=== PATIENT | female | born 1960 | race Caucasian/White ===

== ENCOUNTER 2016-07-10 19:57 | Emergency (ER) | payer BC ==
[2016-07-10] MEDS ORDERED: Aspirin Low Dose CHEW TAB* 81 MG PO ONE (20:34)
[2016-07-10 21:28] LABS: Hematocrit 43 % (35-47); Hemoglobin 14.5 g/dl (12.0-16.0); Mean Corpuscular HGB Conc 34 g/dl (31-36); Mean Corpuscular Hemoglobin 32 pg (27-31); Mean Corpuscular Volume 94 fL (80-97); Mean Platelet Volume 8 um3 (7.4-10.4); Red Blood Count 4.54 10^6/ul (4.0-5.4); Red Cell Distribution Width 14 % (10.5-15); White Blood Count 5.5 10^3/ul (3.5-10.8)
--- NOTE | 2016-07-10 21:30 | RAD ---
Indication: Chest pain. Comparison is made with previous exam dated October 31, 2007 2 views of the chest including dual energy PA views demonstrates no mediastinal shift. Peribronchial thickening consistent with vascular congestion is noted. No alveolar consolidation is noted. IMPRESSION: Mild vascular congestion without evidence of pneumonia.
[2016-07-10 22:14] LABS: Albumin 4.1 g/dL (3.2-5.2); BUN/Creatinine Ratio 13.6 (8-20); Calcium 9.2 mg/dL (8.6-10.3); EGFR African American 70.8 (>60); Globulin 2.6 g/dL (2-4); Potassium 3.9 mmol/L (3.5-5.0); Total Bilirubin 0.4 mg/dL (0.2-1.0); Total Protein 6.7 g/dL (6.4-8.9)
[2016-07-10 22:16] LABS: Troponin I 0.01 ng/mL (<0.04)
[2016-07-10] MEDS ORDERED: Iodixanol* (CONTRAST) 320 MG/ML 100 ML SDV IV ONE (22:26)
--- NOTE | 2016-07-10 23:05 | RAD ---
Indication: Elevated d-dimer, evaluate for pulmonary embolus. CTA of the chest was performed after IV contrast administration. Coronal and sagittal reconstructed images were obtained. Administered 87.1 ml of VISAPAQUE 320 mgi/ml was given according to hospital protocol. Coronal and sagittal reconstructed images were obtained. The pulmonary arterial tree is well opacified. There are no filling defects present to suggest pulmonary embolus. The ascending and descending aorta demonstrates no evidence of aneurysmal dilatation or aortic dissection. Heart demonstrates no pericardial effusion. No mediastinal or hilar adenopathy is noted. Inferior thyroid lobes are unremarkable. The lung lowery demonstrates dependent changes. Prominent interstitial markings which may represent vascular congestion is present. Patchy areas of dependent edema is noted. The visualized abdominal organs are grossly unremarkable. IMPRESSION: No evidence of pulmonary emboli is noted. Dependent changes in the lung lowery with prominent interstitial markings and prominent vasculature and the possibility of vascular congestion should BE considered.
[2016-07-10 23:10] VITALS: BP 115/77
--- NOTE | 2016-07-27 19:55 | ED ---
Kulwant Belcher Janilya, scribed for Cade Moon MD on 07/10/16 at 2039 . HPI Chest Pain - HPI Summary HPI Summary: A 56 y/o female came in to [facility] presenting w/ a gradual onset of intermittent CP for a few weeks. At first, pt thought it was a heart burn. So she took antacids and used inhalers with no relief. However, the pain worsened last night. The pain radiates to neck and ears. There is nothing that makes the pain better or worse. Pt states there is a lot of pressure in head. Pt denies fever, nausea, and vomiting. Pt states she has baseline diarrhea. Appetite has not changed. PMHx GERD couple years ago. - History of Current Complaint Chief Complaint: EDChestPainROMI Hx Obtained From: Patient Onset/Duration: Started Days Ago, Atraumatic, Still Present Timing: Constant Initial Severity: Moderate Current Severity: Moderate Pain Intensity: 7 Pain Scale Used: 0-10 Numeric Chest Pain Location: Mid Sternal Chest Pain Radiates: Yes Chest Pain Radiates To:: Neck, Other - ears and head Aggravating Factor(s): Nothing Alleviating Factor(s): Nothing Associated Signs and Symptoms: Positive: Chest Pain, Headaches, Other: - diarrhea. Negative: Fever, Nausea, Vomiting PMH/Surg Hx/FS Hx/Imm Hx Previously Healthy: Yes Endocrine/Hematology History: Denies: Hx Diabetes, Hx Systemic Lupus Erythematosus Cardiovascular History: Denies: Hx Congestive Heart Failure, Hx Hypertension, Hx Pacemaker/ICD Respiratory History: Reports: Hx Pulmonary Embolism GI History: Reports: Other GI Disorders - diarrhea History: Denies: Hx Dialysis, Hx Renal Disease Musculoskeletal History: Reports: Other Musculoskeletal History - MRI 2009 FINDINGS OF POSSIBLE ATHRITIS Denies: Hx Rheumatoid Arthritis Sensory History: Denies: Hx Hearing Aid Psychiatric History: Denies: Hx Panic Disorder - Cancer History Cancer Type, Location and Year: Cervical CA in 2007 Hx Chemotherapy: Yes - 2007 - Surgical History Surgery Procedure, Year, and Place: tonsillectomy in the s; tubaligation 1987 ; lymphemdectomy pelvis and abdomen in 2007 due to cervical cancer dx in 2007. Parathyroidectomy in 2010. Infectious Disease History: No Infectious Disease History: Denies: Traveled Outside the [place] in Last 30 Days - Family History Known Family History: Positive: Cardiac Disease, Hypertension, Diabetes - Social History Lives: With Family Review of Systems Negative: Fever Positive: Ear Ache Positive: Chest Pain Positive: Diarrhea. Negative: Nausea Positive: Headache All Other Systems Reviewed And Are Negative: Yes Physical Exam Triage Information Reviewed: Yes Vital Signs On Initial Exam: Initial Vitals Temp Pulse Resp BP Pulse Ox 98.1 F 78 24 146/92 95 07/10/16 20:19 07/10/16 20:19 07/10/16 20:19 07/10/16 20:19 07/10/16 20:19 Vital Signs Reviewed: Yes Appearance: Positive: Well-Appearing, No Pain Distress Skin: Positive: Warm Head/Face: Positive: Normal Head/Face Inspection Eyes: Positive: JINA ENT: Positive: Pharynx normal Neck: Positive: Supple Respiratory/Lung Sounds: Positive: Clear to Auscultation, Breath Sounds Present Cardiovascular: Positive: Normal Abdomen Description: Positive: Nontender, Soft Bowel Sounds: Positive: Present Musculoskeletal: Positive: Strength/ROM Intact Neurological: Positive: Sensory/Motor Intact Psychiatric: Positive: Affect/Mood Appropriate Diagnostics - Vital Signs Vital Signs Temp Pulse Resp BP Pulse Ox 07/10/16 20:19 98.1 F 78 24 146/92 95 - Laboratory Lab Results: Lab Results 07/10/16 07/10/16 07/10/16 Range/Units 21:10 21:10 21:10 WBC 5.5 (3.5-10.8) 10^3/ul RBC 4.54 (4.0-5.4) 10^6/ul Hgb 14.5 (12.0-16.0) g/dl Hct 43 (35-47) % MCV 94 (80-97) fL MCH 32 H (27-31) pg MCHC 34 (31-36) g/dl RDW 14 (10.5-15) % Plt Count 187 (150-450) 10^3/ul MPV 8 (7.4-10.4) um3 Neut % (Auto) 74.5 (38-83) % Lymph % (Auto) 12.2 L (25-47) % [place] % (Auto) 11.7 H (1-9) % Eos % (Auto) 0.9 (0-6) % Baso % (Auto) 0.7 (0-2) % Absolute Neuts (auto) 4.1 (1.5-7.7) 10^3/ul Absolute Lymphs (auto) 0.7 L (1.0-4.8) 10^3/ul Absolute Monos (auto) 0.6 (0-0.8) 10^3/ul Absolute Eos (auto) 0 (0-0.6) 10^3/ul Absolute Basos (auto) 0 (0-0.2) 10^3/ul Absolute Nucleated RBC 0 10^3/ul Nucleated RBC % 0 INR (Anticoag Therapy) (0.89-1.11) D-Dimer, Quantitative (Less Than 230) ng/mL Sodium 137 (133-145) mmol/L Potassium 3.9 (3.5-5.0) mmol/L Chloride 102 (101-111) mmol/L Carbon Dioxide 30 (22-32) mmol/L Anion Gap 5 (2-11) mmol/L BUN 14 (6-24) mg/dL Creatinine 1.03 H (0.51-0.95) mg/dL Est GFR ( Amer) 70.8 (>60) Est GFR (Non-Af Amer) 55.0 (>60) BUN/Creatinine Ratio 13.6 (8-20) Glucose 100 (70-100) mg/dL Lactic Acid 0.9 (0.5-2.0) mmol/L Calcium 9.2 (8.6-10.3) mg/dL Magnesium 2.0 (1.9-2.7) mg/dL Total Bilirubin 0.40 (0.2-1.0) mg/dL AST 28 (13-39) U/L ALT 24 (7-52) U/L Alkaline Phosphatase 72 (34-104) U/L Troponin I 0.01 (<0.04) ng/mL Total Protein 6.7 (6.4-8.9) g/dL Albumin 4.1 (3.2-5.2) g/dL Globulin 2.6 (2-4) g/dL Albumin/Globulin Ratio 1.6 (1-3) 07/10/16 Range/Units 21:10 WBC (3.5-10.8) 10^3/ul RBC (4.0-5.4) 10^6/ul Hgb (12.0-16.0) g/dl Hct (35-47) % MCV (80-97) fL MCH (27-31) pg MCHC (31-36) g/dl RDW (10.5-15) % Plt Count (150-450) 10^3/ul MPV (7.4-10.4) um3 Neut % (Auto) (38-83) % Lymph % (Auto) (25-47) % [place] % (Auto) (1-9) % Eos % (Auto) (0-6) % Baso % (Auto) (0-2) % Absolute Neuts (auto) (1.5-7.7) 10^3/ul Absolute Lymphs (auto) (1.0-4.8) 10^3/ul Absolute Monos (auto) (0-0.8) 10^3/ul Absolute Eos (auto) (0-0.6) 10^3/ul Absolute Basos (auto) (0-0.2) 10^3/ul Absolute Nucleated RBC 10^3/ul Nucleated RBC % INR (Anticoag Therapy) 0.96 (0.89-1.11) D-Dimer, Quantitative 259 H (Less Than 230) ng/mL Sodium (133-145) mmol/L Potassium (3.5-5.0) mmol/L Chloride (101-111) mmol/L Carbon Dioxide (22-32) mmol/L Anion Gap (2-11) mmol/L BUN (6-24) mg/dL Creatinine (0.51-0.95) mg/dL Est GFR ( Amer) (>60) Est GFR (Non-Af Amer) (>60) BUN/Creatinine Ratio (8-20) Glucose (70-100) mg/dL Lactic Acid (0.5-2.0) mmol/L Calcium (8.6-10.3) mg/dL Magnesium (1.9-2.7) mg/dL Total Bilirubin (0.2-1.0) mg/dL AST (13-39) U/L ALT (7-52) U/L Alkaline Phosphatase (34-104) U/L Troponin I (<0.04) ng/mL Total Protein (6.4-8.9) g/dL Albumin (3.2-5.2) g/dL Globulin (2-4) g/dL Albumin/Globulin Ratio (1-3) Result Diagrams: 07/10/16 21:10 07/10/16 21:10 Lab Statement: Any lab studies that have been ordered have been reviewed, and results considered in the medical decision making process. - Radiology CXR Xray Interpretation: Positive (See Comments) - IMPRESSION: Mild vascular congestion without evidence of pneumonia. Radiology Interpretation Completed By: Radiologist - EKG 1999 Cardiac Rate: NL - 85 bpm EKG Rhythm: Sinus Rhythm ST Segment: Normal Ectopy: None Chest Pain Course/Dx - Diagnoses Provider Diagnoses: Abdominal pain Discharge - Discharge Plan Condition: Stable Disposition: HOME Patient Education Materials: Abdominal Pain (ED) Referrals: Nina Kennedy MD [Primary Care Provider] - Additional Instructions: Follow up with your urologist and make diet changes for GERD. The documentation as recorded by the Kulwant ortega Janilya accurately reflects the service I personally performed and the decisions made by me, Cade Moon MD.
== END 2016-07-10 23:35 | disposition home or self-care (01) ==
LOC: ED 19:57
DX: R10.9 Unspecified abdominal pain (principal); R07.9 Chest pain, unspecified; H92.09 Otalgia, unspecified ear; R51 Headache; R19.7 Diarrhea, unspecified
CPT/HCPCS: 36415; 71020; 71275; 80053; 83605; 83735; 84484; 85025; 85379; 85610; 93005; 99283; A9270-GY; Q9967

== ENCOUNTER 2016-10-17 08:33 | Emergency (ER) | payer BC, OTHER ==
[2016-10-17 09:10] VITALS: BP 129/94
[2016-10-17] MEDS ORDERED: Naproxen TAB* 250 MG PO ONE (09:40)
--- NOTE | 2016-10-17 09:46 | UC ---
Knee Pain HPI - HPI Summary HPI Summary: 56 yo female with right knee pain x 10 wks rachelle swollen saw PMD dx with bakers cyst had cortisone shot felt improved twisted knee yesterday getting on a tractor now worse - History of Current Complaint Chief Complaint: UCLowerExtremity Stated Complaint: KNEE PAIN Time Seen by Provider: 10/17/16 09:32 Hx Obtained From: Patient Onset/Duration: Sudden Onset - sudden exacerbation Severity Initially: Mild Severity Currently: Moderate Pain Intensity: 6 Pain Scale Used: 0-10 Numeric Character: Sharp, Aching Aggravating Factor(s): Movement, Weight Bearing Alleviating Factor(s): Rest Associated Signs And Symptoms: Positive: Swelling Able to Bear Weight: Yes - Allergies/Home Medications Allergies/Adverse Reactions: Allergies Allergy/AdvReac Type Severity Reaction Status Date / Time No Known Allergies Allergy Verified 10/17/16 09:01 Home Medications: Home Medications Aleve 2 tab PO ONCE 10/17/16 [History] Pregabalin CAP(*) [Lyrica CAP(*)] 1 cap PO DAILY 10/17/16 [History Confirmed 12/27] PMH/Surg Hx/FS Hx/Imm Hx Previously Healthy: Yes Endocrine History Of: Reports: Thyroid Disease - enlarged with suspicious nodules Denies: Diabetes Cardiovascular History Of: Denies: Cardiac Disorders, Hypertension, Pacemaker/ICD, Congestive Heart Failure Respiratory History Of: Reports: COPD Denies: Asthma GI/ History Of: Denies: Ulcer, Renal Disease - Surgical History Surgical History: Yes Surgery Procedure, Year, and Place: tonsillectomy in the s; tubaligation 1987 ; [facility] ,lymphecdectomy pelvis and abdomen in 2007 due to cervical cancer dx in 2007. Parathyroidectomy in 2010. - Family History Known Family History: Positive: Hypertension - Social History Alcohol Use: Occasionally Substance Use Type: None Smoking Status (MU): Heavy Every Day Tobacco Smoker Review of Systems Constitutional: Negative Skin: Negative Eyes: Negative ENT: Negative Respiratory: Negative Cardiovascular: Negative Gastrointestinal: Negative Genitourinary: Negative Motor: Negative Neurovascular: Negative Musculoskeletal: Arthralgia Neurological: Negative Psychological: Negative All Other Systems Reviewed And Are Negative: Yes Physical Exam Triage Information Reviewed: Yes Appearance: Well-Appearing, No Pain Distress, Well-Nourished Vital Signs: Initial Vital Signs Temp 98.4 F 10/17/16 08:51 Pulse 85 10/17/16 08:51 Resp 18 10/17/16 08:51 BP 129/94 10/17/16 08:51 Pulse Ox 98 10/17/16 08:51 Vital Signs Reviewed: Yes Eye Exam: Normal Eyes: Positive: Conjunctiva Clear ENT: Positive: Hearing grossly normal. Negative: Nasal drainage, Trismus, Muffled/hoarse voice Neck: Positive: Supple, Nontender, No Lymphadenopathy Respiratory: Positive: Lungs clear, Normal breath sounds, No respiratory distress, No accessory muscle use Cardiovascular: Positive: RRR, No Murmur Musculoskeletal: Positive: ROM Limited @ - right knee-pain with extension, Edema @ - politeal fossa (R), Other: - antalgic gait, tender medial>lateral joint line Neurological: Positive: Alert Psychological Exam: Normal Skin Exam: Normal Knee Pain Course/Dx - Differential Dx/Diagnosis Provider Diagnoses: right knee pain-suspect torn menicus and hope's cyst Discharge - Discharge Plan Condition: Stable Disposition: HOME Patient Education Materials: Bakers Cyst (ED), Meniscus Tear (ED) Referrals: Leonid Golden MD [Medical Doctor] - As Soon As Possible Additional Instructions: knee immobilizer ice twice daily aleve 2 twice daily
--- NOTE | 2016-10-17 10:14 | RAD ---
INDICATION: Knee pain after popping sensation. Recent right knee intervention includes drainage of a Delgado's cyst with cortisone injection. COMPARISON: None TECHNIQUE: 4 view radiograph of the right knee. FINDINGS: The visualized bones are well-corticated and properly aligned. There is mild narrowing of the medial compartment joint height. On the lateral view there is osteophyte formation at the superior pole of the patella. The patellofemoral joint appears to be adequately maintained. There is no radiographic evidence of joint effusion. There is no acute fracture, dislocation or other focal bony abnormality. IMPRESSION: Mild degenerative changes of the right knee as described above. If the patient's symptoms persist, follow-up imaging is recommended.
== END 2016-10-17 10:40 | disposition home or self-care (01) ==
LOC: UCEAST 08:33
DX: M25.561 Pain in right knee (principal); E07.9 Disorder of thyroid, unspecified; F17.210 Nicotine dependence, cigarettes, uncomplicated
CPT/HCPCS: 99202; A9270-GY; G0463

== ENCOUNTER 2016-11-23 11:06 | Day surgery (SDC) | payer BC ==
--- NOTE | 2016-11-12 08:11 | HP ---
PREOPERATIVE HISTORY AND PHYSICAL: DATE OF SURGERY/ADMISSION: 11/23/16 DATE OF OFFICE VISIT: 11/10/16 ATTENDING PHYSICIAN/SURGEON: Dr. Janet Haley. (DICTATED BY SHANTA CRANDALL) PROCEDURE: Right knee arthroscopy, partial medial meniscectomy, possible chondroplasty, possible synovectomy. CHIEF COMPLAINT: Right knee pain. HISTORY OF PRESENT ILLNESS: Elizabeth Lenz is a 56-year-old female who has had a 2 -month history of right knee pain. The patient states that it started in August to early September for over a 2-week period, she had fallen approximately 3 times at home when properly walking on a hillside. Each time, she twisted her right knee and developed some swelling. Then in mid September, the patient went to her family medicine doctor, who diagnosed her with a right knee Delgado's cyst presumably on exam. The patient was given a cortisone injection in the right knee, was started on physical therapy. The patient was also taking over-the- counter naproxen. The patient notes that the PCP tried to aspirate the knee before he injected with cortisone. She was seen by Dr. Haley and sent for MRI of the right knee which was done on 11/03/16 and did show a complete radial tear posterior root of the medial meniscus. The patient would like to proceed with right knee arthroscopy, partial medial meniscectomy and this was scheduled with Dr. Haley on 11/23/16. PAST MEDICAL HISTORY: 1. Thyroid nodules. 2. DVT. 3. Antiphospholipid antibody. 4. MRSA. 5. Cervical cancer. 6. COPD. 7. GERD. 8. Hyperlipidemia. PAST SURGICAL HISTORY: 1. Parathyroidectomy. 2. Tonsillectomy. 3. Tubal ligation. 4. Lumpectomy. MEDICATIONS: 1. Lyrica. 2. Albuterol. ALLERGIES: No known drug allergies. No allergies to latex or adhesive tapes. FAMILY HISTORY: Cancers and heart disease. 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 She smokes half-a-pack per day. Drinks alcohol occasionally and denies recreational drug use. REVIEW OF SYSTEMS: A complete 14-point review of systems was reviewed with the patient and it was positive for COPD. Positive for nocturia, urinary frequency , urinary urgency. Positive for peripheral neuropathy and positive for DVT. She has had 3 negative MRSA swabs recently. The rest of the review of systems is negative including negative for known anesthesia problem, negative for hep C and HIV. PHYSICAL EXAMINATION GENERAL: A well-developed, well-nourished 56-year-old female in mild distress at rest. VITAL SIGNS: Height 64, weight 215 pounds, blood pressure is 117/74, respirations 16, BMI of 36.9 HEENT: Head is normocephalic, atraumatic. NECK: Supple with no palpable lymph nodes. PULMONARY: Lungs clear to auscultation bilaterally with no wheezes, rales or rhonchi. CARDIO: Regular rate and rhythm. S1, S2. No murmurs, rubs or gallops. No edema. ABDOMEN: Soft, nontender. Positive bowel sounds throughout. MUSCULOSKELETAL: Right lower extremity, right knee exam shows no soft swelling or bleeding. No significant effusion. Range of motion of the right knee is 0 to 120 degrees of flexion. There is an effusion with terminal extension. There is pain in the posterolateral knees with terminal extension. No pain with terminal flexion. Positive medial and lateral joint line tenderness to palpation. No posterior joint line tenderness to palpation about the roots. Negative Eliz's test. No pain or increased laxity with ligamentous stress testing. Positive patellofemoral compartment tenderness to palpation. NEUROLOGICAL: Alert and oriented x3. Cranial nerve II through XII are intact. Sensation is decreased in bilateral toes. STUDIES: MRI that was done on 11/03/16 did show a complete radial tear to the posterior roots of the medial meniscus. IMPRESSION: Elizabeth Lenz is a 56-year-old female with right knee medial meniscus tear. PLAN: The patient is scheduled to undergo a right knee arthroscopy with partial meniscectomy, possible synovectomy, possible chondroplasty with Dr. Haley on 11/23/16. She will return to the office 10 to 14 days postop for followup and suture removal. A prescription for Percocet was e-scribed to the patient's pharmacy for postoperative pain management and I-STOP was checked. SHANTA CRANDALL [id number]/[facility] #: [id number] [facility]
[~2016-11-23 11:06] MED LIST: Buffered Lidocaine 0.9% SYRIN* 5 ML/SYR SYRINGE INTRADERM ONE; Bupivacaine 0.5% SDV PF* 30 ML VIAL ONE; EPINEPHrine AMP 1 MG/ML ONE; Metoclopramide TAB* 10 MG PO ONE; methylPREDNISolone ACETATE 80* 80 MG/ML 1 ML VIAL ONE
[2016-11-23] MEDS ORDERED: Buffered Lidocaine 0.9% SYRIN* 5 ML/SYR SYRINGE ONE (11:45)
[2016-11-23] MEDS ORDERED: ceFAZolin 2 GM PREMIX(*) 2 GM/50 ML BAG IVPB ONE (11:45)
[2016-11-23] MEDS ORDERED: Metoclopramide TAB* 10 MG ONE (11:45)
[2016-11-23] MEDS ORDERED: Ketorolac INJ* 30 MG/ML 1 ML VIAL ONE (14:13)
[2016-11-23] MEDS ORDERED: Lidocaine 2% PF * 5 ML VIAL ONE (14:13)
[2016-11-23] MEDS ORDERED: Propofol* 10 MG/ML 20 ML BTL IV PUSH ONE (14:13)
[2016-11-23] MEDS ORDERED: Ondansetron INJ* 2 MG/ML VIAL ONE (14:13)
[2016-11-23] MEDS ORDERED: Dexamethasone IV* 4 MG/ML 1 ML (4 MG) ONE (14:13)
[2016-11-23] MEDS ORDERED: Midazolam* 1 MG/ML 5 ML VIAL (5 MG) ONE (14:14)
[2016-11-23] MEDS ORDERED: fentaNYL* 50 MCG/ML 2 ML VIAL (100 MCG VIAL) ONE ×3 (14:14→15:54)
[2016-11-23] MEDS ORDERED: KETAMINE HCL* 50 MG/ML 10 ML VIAL ONE (14:14)
[2016-11-23] MEDS ORDERED: Levalbuterol HFA INHALER* 1 PUFF MDI ONE (15:05)
[2016-11-23] MEDS ORDERED: Ondansetron INJ* 2 MG/ML VIAL IV PRN (15:34)
[2016-11-23] MEDS ORDERED: DiMENhydriNATE IV* 50 MG/ML VIAL IV PUSH PRN (15:34)
[2016-11-23] MEDS ORDERED: Levalbuterol 0.63MG/3ML NEB INH PRN (15:34)
[2016-11-23] MEDS: fentaNYL* 50 MCG/ML 2 ML VIAL (100 MCG VIAL) IV PRN ×2 (15:58→16:14)
[2016-11-23] MEDS ORDERED: oxyCODONE/Acetamin 5/325 MG* TAB ONE ×2 (16:09→17:01)
[2016-11-23 17:59] VITALS: BP 143/96
--- NOTE | 2016-11-24 04:40 | OP ---
DATE OF OPERATION: 11/23/16 - DATE OF : 56 SURGEON: Janet Haley MD DUST BOX TENDER: SHANTA Be. Ms. Mojica did help throughout the procedure with preparation of the leg, manipulation of instrumentation, manipulation of the knee and wound closure. ANESTHESIOLOGIST: Dr. Melo. ANESTHESIA: General. PRE-OP DIAGNOSES: Right knee medial meniscal tear, [id number] osteoarthritis. POST-OP DIAGNOSES: Tricompartmental severe degenerative osteoarthritis of the right knee joint, radial tear of the posteromedial meniscus. OPERATIVE PROCEDURE: Right knee arthroscopy with partial medial meniscectomy and lateral chondroplasty. EBL: Less than 25 cc. COMPLICATIONS: None. SPECIMENS: None. INDICATIONS: Ms. Lenz is a 56-year-old female with several months of right knee pain after some falls at the end of August. She had twisted injury to the knee and developed joint line pain and clicking. MRI confirmed a medial meniscal tear, radiographs showed some arthritic changes in a tricompartmental fashion. The patient failed conservative treatment and wished to proceed with right knee arthroscopy with partial medial meniscectomy and possible chondroplasty. Informed consent was obtained from the patient. She understood the risks of surgery included but were not limited to bleeding, infection, damage to nearby structures, continued pain, need for further surgery, stroke, heart attack, blood clot, and . She wished to proceed. FINDINGS: Intraoperatively, the patient was noted to have severe degenerative osteoarthritis in a tricompartmental fashion. These were grade 3 and 4 Out[place]bridge cartilage changes in all 3 compartments. She had a radial type tear in the posterior medial meniscus. DESCRIPTION OF PROCEDURE: Ms. Lenz is identified in the preanesthesia unit. Her right lower extremity was marked as the correct operative site. Informed consent was signed and placed in the chart. Patient was taken to the operating room and placed under general anesthesia. Right lower extremity was prepped and draped in the usual sterile fashion. Preop time-out was made to once again correctly identify the patient's side and site. Appropriate perioperative antibiotics were given within 1 hour of incision. A 0.5 cm anterolateral poral incision was made with a 15 blade. The trocar was introduced. As soon as the light and water surfaces were turned on, there was immediate visualization of suprapatellar pouch. A tour of the knee joint was performed. Patellofemoral compartment had grade 3 and 4 Out[place]bridge cartilage changes. There was cartilage flapping with fissures of cartilage along the patella as well as exposed subchondral bone in the trochlear groove of the femur. Medial gutter showed no loose body or plica. The medial compartment showed exposed subchondral bone along the majority of the medial femoral condyle. There was a posterior radial type tear of the medial meniscus visible. ACL appeared to be intact. Knee was placed in a [id number] position. Lateral femoral condyle had a large cartilage flap with exposed subchondral bone. No obvious lateral meniscal tear. Under direct visualization, a medial portal incision was made. Probe was introduced and a second tour of the knee joint was performed. No additional findings were noted. Shaver was introduced to remove some anterior synovitis. Better visualization was obtained. A straight biter and shaver were used to perform partial medial meniscectomy. A smooth border was obtained in the white- red zone. The radiofrequency ablation wand was used to smooth any cartilage flaps. This was performed in the lateral compartment. The shaver was placed in the suprapatellar pouch. The knee was copiously irrigated with sterile saline. All instruments were carefully removed. The incisions were closed with 3-0 nylon suture. Intraarticular injection of 80 mg of Depo-Medrol and 60 cc of 0.25% Marcaine was placed in the knee joint. Sterile Xeroform, 4 x 4s, and Webril were used to cover the incisions. Alexx wrap and cold pack were placed over this. The patient's anesthesia was reversed without difficulty. She was taken to the PACU in stable condition. Intended weightbearing will be weightbearing as tolerated. Intended DVT prophylaxis will be Lovenox per Dr. Finn's recommendations. She will have Lovenox over the next 3 days, and if she is properly mobilizing by then, she will switch to aspirin b.i.d. [id number]/[facility] #: [id number] [facility]
== END 2016-11-23 17:45 | disposition home or self-care (01) ==
LOC: OR 11:06
PROVIDERS: ATTEND Orthopaedic Surgery Adult Reconstructive Orthopaedic Surgery
DX: S83.241A Other tear of medial meniscus, current injury, right knee, initial encounter (principal); M17.11 Unilateral primary osteoarthritis, right knee; J44.9 Chronic obstructive pulmonary disease, unspecified; Z86.718 Personal history of other venous thrombosis and embolism; G62.9 Polyneuropathy, unspecified; W19.XXXA Unspecified fall, initial encounter; Y92.9 Unspecified place or not applicable
CPT/HCPCS: 88304; A9270-GY; J0171; J0690; J1040; J1100; J1885; J2250; J2405; J2704; J3010

== ENCOUNTER 2016-12-28 14:47 | Emergency (ER) | payer BC ==
--- NOTE | 2016-12-28 15:22 | UC ---
anjana Belcher Timothy, scribed for Allie Cormier MD on 12/28/16 at 1515 . Lower Extremity/Ankle HPI - HPI Summary HPI Summary: Elizabeth Lenz is a 56 yo female presenting to [facility] with RLE pain/tightness and swelling for the past few weeks S/P arthroscopy on her right knee in 11/2016. She has been off anti-coagulants since December 11. Her orthopedic provider recommended she come to urgent care to eval for DVT. Pt present for venous doppler to r/o DVT. She states that she noticed that her leg feels as it had before her surgery "like there is water in it." She states that the swelling has extended past her ankle since 12/26/16 No trauma. Pt has been doing extensive walking - walks around [place], works as RN. She denies any allergy. She states she is moderately activeHer MHx includes thyroid enlargement with nodules, parathyroidectomy, peripheral neuropathy, COPD, HLD, PE, GERD, IBS d/t radiation Tx, tubal ligation, cervical CA with metastasis, tobacco use, chemotherapy, radiation therapy, MRSA. Her PCP is Dr. Haley. Pt medication list reviewed this visit. - History of Current Complaint Chief Complaint: UCLowerExtremity Stated Complaint: LEG SWOLLEN Time Seen by Provider: 12/28/16 14:58 Hx Obtained From: Patient Onset/Duration: Gradual Onset, Lasting Weeks, Still Present Severity Initially: Moderate Severity Currently: Moderate Pain Intensity: 10 Pain Scale Used: 0-10 Numeric Able to Bear Weight: Yes - Allergies/Home Medications Allergies/Adverse Reactions: Allergies Allergy/AdvReac Type Severity Reaction Status Date / Time No Known Allergies Allergy Verified 11/23/16 11:50 PMH/Surg Hx/FS Hx/Imm Hx Previously Healthy: No Endocrine History: Thyroid Disease Cardiovascular History: Other Other Cardiovascular History: PE, HLD Respiratory History: COPD GI/ History: Gastroesophageal Reflux, Other Other GI/ History: irritable bowel d/t radiation therapy Cancer History: Cervical Cancer - with METS - Surgical History Surgical History: Yes Surgery Procedure, Year, and Place: tonsillectomy in the s;. tubaligation 1987;. D & C;. lymphecdectomy pelvis and abdomen in 2007 due to cervical cancer dx in 2007; Parathyroidectomy in 2010; - Family History Known Family History: Positive: Hypertension Negative: Diabetes, Blood Disorder - Social History Alcohol Use: Occasionally Alcohol Amount: 2-3 DRINKS A WEEK Substance Use Type: None Smoking Status (MU): Former Smoker Amount Used/How Often: QUIT FOR 2 YRS PRIOR TO THIS, SMOKED 1/2-3/4 PPD WHEN SHE DID SMOKE When Did the Patient Quit Smoking/Using Tobacco: QUIT SMOKING November, SMOKED FOR PAST TWO MONTHS, R/T SON PASSING Review of Systems Constitutional: Negative Skin: Negative Eyes: Negative ENT: Negative Respiratory: Negative Cardiovascular: Negative Gastrointestinal: Negative Genitourinary: Negative Motor: Negative Neurovascular: Negative Musculoskeletal: Other: - pain and swelling in RLE Neurological: Negative Psychological: Negative All Other Systems Reviewed And Are Negative: Yes Physical Exam Triage Information Reviewed: Yes Appearance: Well-Appearing, No Pain Distress, Well-Nourished Vital Signs: Initial Vital Signs Temp 98.1 F 12/28/16 14:50 Pulse 78 12/28/16 14:50 Resp 18 12/28/16 14:50 BP 135/80 12/28/16 14:50 Pulse Ox 97 12/28/16 14:50 Vital Signs Reviewed: Yes Eyes: Negative: Discharge ENT: Positive: Hearing grossly normal Neck exam: Normal Neck: Positive: Supple Respiratory: Positive: Chest non-tender, Lungs clear, Normal breath sounds, No respiratory distress, No accessory muscle use Cardiovascular Exam: Normal Cardiovascular: Positive: Pulses Normal, Other: - 2+ DP, PT CBT < 2 sec Musculoskeletal Exam: Normal Musculoskeletal: Positive: Strength Intact, ROM Intact, Edema @ - RLE - prox calf to ankle, Other: - mild TTP posterior calf. Negative: No Edema Neurological Exam: Normal Psychological Exam: Normal Skin Exam: Normal Diagnostics - Radiology RLE doppler Xray Interpretation: No Acute Changes - IMPRESSION: No evidence for RIGHT lower extremity deep venous thrombosis. Radiology Interpretation Completed By: Radiologist Re-Evaluation - Re-Evaluation First Eval Re-Evaluation Time: 16:58 Comment: reviewed ultrasound result with pt. recommend elevate leg for edema. Dr. Haley follow-up. motrin/apap. rest. return prn Lower Extremity Course/Dx - Course Course Of Treatment: Elizabeth Lenz is a 46 yo female presenting to [facility] per Dr. Haley's recommendation for r/o DVT in her RLE, presenting with 10/10 pain and swelling from the knee to the ankle for the past 3 weeks, extending distal to knee since 12/26/16. She is S/P arthroscopy in 11/2016. She was on anticoagulant therapy until 12/11/16. Pt medication list reviewed this visit. Her RLE venous doppler suggests no evidence for DVT of the RLE. After clinical examination and review of her inmaging study, she will be discharged home with appropriate instructions and follow up. - Differential Dx/Diagnosis Provider Diagnoses: RLE edema Discharge - Discharge Plan Condition: Stable Disposition: HOME Patient Education Materials: Leg Edema (ED) Referrals: Madison Mccormick [Primary Care Provider] - Janet Haley MD [Medical Doctor] - Additional Instructions: Follow-up with Dr. Haley regarding today's results and to schedule a follow-up appointment Elevate your leg to help with swelling and pain Okay to take Tylenol or Ibuprofen as previous for pain The documentation as recorded by the anjana ortega Timothy accurately reflects the service I personally performed and the decisions made by me, Allie Cormier MD.
--- NOTE | 2016-12-28 16:51 | RAD ---
INDICATION: Post RIGHT knee surgery November 23, 2016. Calf swelling. COMPARISON: No relevant prior exams available on the [facility] for comparison. TECHNIQUE: Leyva scale, color Doppler, and spectral analysis of the deep veins of the RIGHT lower extremity. Vessel compression, phasicity, and augmentation assessed. REPORT: The RIGHT common femoral, great saphenous, profunda femoral, femoral, popliteal, peroneal, and posterior tibial veins are patent. Patency of the LEFT common femoral vein documented. IMPRESSION: No evidence for RIGHT lower extremity deep venous thrombosis.
[2016-12-28 17:00] VITALS: BP 128/88
== END 2016-12-28 17:00 | disposition home or self-care (01) ==
LOC: UCEAST 14:47
DX: R60.9 Edema, unspecified (principal); Z86.14 Personal history of Methicillin resistant Staphylococcus aureus infection; Z87.891 Personal history of nicotine dependence; G62.9 Polyneuropathy, unspecified; J44.9 Chronic obstructive pulmonary disease, unspecified; E78.5 Hyperlipidemia, unspecified; Z86.711 Personal history of pulmonary embolism; K21.9 Gastro-esophageal reflux disease without esophagitis; K58.9 Irritable bowel syndrome, unspecified; Z92.3 Personal history of irradiation; Z85.41 Personal history of malignant neoplasm of cervix uteri; Z92.21 Personal history of antineoplastic chemotherapy
CPT/HCPCS: 99211; G0463

== ENCOUNTER 2017-03-30 13:30 | Emergency (ER) | payer BC ==
[2017-03-30] MEDS ORDERED: Aspirin Low Dose CHEW TAB* 81 MG PO ONE (13:57)
[2017-03-30 14:14] LABS: Hematocrit 41 % (35-47); Hemoglobin 14.1 g/dl (12.0-16.0); Mean Corpuscular HGB Conc 35 g/dl (31-36); Mean Corpuscular Hemoglobin 33 pg (27-31); Mean Corpuscular Volume 95 fL (80-97); Mean Platelet Volume 8 um3 (7.4-10.4); Red Cell Distribution Width 14 % (10.5-15)
[2017-03-30 14:29] LABS: Albumin 4.4 g/dL (3.2-5.2); BUN/Creatinine Ratio 17.2 (8-20); Calcium 9.3 mg/dL (8.6-10.3); EGFR Non-African American 66.9 (>60); Globulin 2.5 g/dL (2-4); Potassium 3.8 mmol/L (3.5-5.0); Total Bilirubin 0.4 mg/dL (0.2-1.0); Total Protein 6.9 g/dL (6.4-8.9)
[2017-03-30] MEDS ORDERED: Iohexol 350* (CONTRAST) 500 ML MDV IV ONE (14:36)
--- NOTE | 2017-03-30 15:23 | RAD ---
INDICATION: Shortness of breath. Confusion, elevated blood pressure. Oncology history. COMPARISON: March 04, [address] and July 10, [address] TECHNIQUE: Multidetector CT images were obtained from the lung apices to the upper abdomen with 73 mL Omnipaque 350 IV contrast. Pulmonary angiogram protocol. Multiplanar reformation including with maximum intensity projection. REPORT: Clear lungs and pleural spaces. Negative for pneumothorax. Negative for thoracic lymphadenopathy. Negative for cardiomegaly or pericardial effusion. Mildly tortuous normal diameter thoracic aorta. Negative for aortic dissection. No filling defects are identified from the main to the subsegmental pulmonary arteries to indicate presence of a pulmonary embolism. Unremarkable Limited images through the upper abdomen. No suspicious osseous lesions evident. IMPRESSION: 1. No evidence for pulmonary embolism. 2. No acute cardiopulmonary process evident. 3. Negative for lymphadenopathy.
--- NOTE | 2017-03-30 15:54 | ED ---
Melonie Belcher Nilda, scribed for Juan Manuel Howard MD on 03/30/17 at 1359 . Complex/Multi-Sys Presentation - HPI Summary HPI Summary: This patient is a 56 year old F presenting to [facility] with a chief complaint of constant dyspnea since 2 days ago. Symptoms began s/p hyperbaric chamber treatment for internal bleeding due to radiation therapy for cervical cancer. Dr. Andrews suggested patient come to ED to r/o PE. The patient rates the pain 5/ 10 in severity. Symptoms aggravated by deep breathing and alleviated by nothing. Patient reports chest pain that radiates to jaw (when deep breathing), bilateral edema, and internal bleeding (vaginal, colon). - History Of Current Complaint Chief Complaint: EDShortnessOfBreath Time Seen by Provider: 03/30/17 13:41 Hx Obtained From: Patient Onset/Duration: Sudden Onset Timing: Constant Severity Currently: Mild Aggravating Factor(s): deep inspiration Alleviating Factor(s): nothing Associated Signs And Symptoms: Positive: Other - chest pain that radiates to jaw (when deep breathing), bilateral edema, and internal bleeding (vaginal, colon). Related History: Other - Had hyperbaric chamber treatment for internal bleeding due to radiation therapy for cervical cancer. - Allergies/Home Medications Allergies/Adverse Reactions: Allergies Allergy/AdvReac Type Severity Reaction Status Date / Time No Known Allergies Allergy Verified 03/30/17 13:43 PMH/Surg Hx/FS Hx/Imm Hx Endocrine/Hematology History: Reports: Hx Thyroid Disease - enlarged with suspicious nodules Denies: Hx Diabetes, Hx Systemic Lupus Erythematosus Cardiovascular History: Reports: Other Cardiovascular Problems/Disorders - COPD diagnosed approx 2 yrs ago, hyperipidemia Denies: Hx Congestive Heart Failure, Hx Hypertension, Hx Pacemaker/ICD Respiratory History: Reports: Hx Chronic Obstructive Pulmonary Disease (COPD), Hx Pulmonary Embolism - 2007 possibly r/t the chemo, unsure Denies: Hx Asthma GI History: Reports: Hx Gastroesophageal Reflux Disease - in H&P, Hx Irritable Bowel - R/T TO RADIATION [place] IN 2007, Other GI Disorders - diarrhea Denies: Hx Ulcer History: Reports: Other Problems/Disorders - BLADDER DYSFUNCTION R/T CHEMO , Denies: Hx Dialysis, Hx Renal Disease Musculoskeletal History: Reports: Other Musculoskeletal History - MRI 2008 FINDINGS OF POSSIBLE ATHRITIS Denies: Hx Rheumatoid Arthritis Sensory History: Reports: Hx Contacts or Glasses - WEARS GLASSES Denies: Hx Hearing Aid Opthamlomology History: Reports: Hx Contacts or Glasses - WEARS GLASSES Neurological History: Reports: Other Neuro Impairments/Disorders - peripheral neuropathy r/t chemo therapy in 2007 Psychiatric History: Denies: Hx Panic Disorder - Cancer History Cancer Type, Location and Year: cervical with jeremiah stage 4 Hx Chemotherapy: Yes Hx Radiation Therapy: Yes - Surgical History Surgery Procedure, Year, and Place: tonsillectomy in the ;. tubaligation 1987;. D & C;. lymphecdectomy pelvis and abdomen in 2007 due to cervical cancer dx in 2007; Parathyroidectomy in 2010;. RIGHT KNEE ARTHROSCOPY Hx Anesthesia Reactions: No Infectious Disease History: No Infectious Disease History: Reports: Hx of Known/Suspected MRSA Denies: Hx Clostridium Difficile, Hx Hepatitis, Hx Human Immunodeficiency Virus (HIV), Hx Shingles, Hx Tuberculosis, Hx Known/Suspected VRE, Hx Known/ Suspected VRSA, History Other Infectious Disease, Traveled Outside the [place] in Last 30 Days - Family History Known Family History: Positive: Hypertension Negative: Diabetes, Blood Disorder - Social History Alcohol Use: Occasionally Alcohol Amount: 2-3 DRINKS A WEEK Substance Use Type: Reports: None Smoking Status (MU): Former Smoker Amount Used/How Often: QUIT FOR 2 YRS PRIOR TO THIS, SMOKED 1/2-3/4 PPD WHEN SHE DID SMOKE Review of Systems Positive: Chest Pain - chest pain that radiates to jaw when deep breathing Positive: Other - dyspnea Positive: Other - colon bleed s/p radiation therapy Positive: other - vaginal bleeding s/p radiation therapy Positive: Edema - bilateral All Other Systems Reviewed And Are Negative: Yes Physical Exam Triage Information Reviewed: Yes Vital Signs On Initial Exam: Initial Vitals Temp Pulse Resp BP Pulse Ox 98.5 F 76 20 128/64 97 03/30/17 13:35 03/30/17 13:35 03/30/17 13:35 03/30/17 13:35 03/30/17 13:35 Vital Signs Reviewed: Yes Appearance: Positive: Well-Appearing, No Pain Distress, Obese Skin: Positive: Warm, Skin Color Reflects Adequate Perfusion, Dry Head/Face: Positive: Normal Head/Face Inspection Eyes: Positive: Normal ENT: Positive: Normal ENT inspection Neck: Positive: Supple, Nontender Respiratory/Lung Sounds: Positive: Clear to Auscultation, Breath Sounds Present Cardiovascular: Positive: RRR, Leg Edema Left - mild, Leg Edema Right - Right leg worse than left Abdomen Description: Positive: Nontender, Soft Bowel Sounds: Positive: Present Musculoskeletal: Positive: Normal, Edema Left - mild, Edema Right - right leg edema worse than left leg Neurological: Positive: Normal Psychiatric: Positive: Normal, Affect/Mood Appropriate Diagnostics - Vital Signs Vital Signs Temp Pulse Resp BP Pulse Ox 03/30/17 13:35 98.5 F 76 20 128/64 97 - Laboratory Lab Results: Lab Results 03/30/17 03/30/17 03/30/17 Range/Units 14:00 14:00 14:00 WBC 5.0 (3.5-10.8) 10^3/ul RBC 4.30 (4.0-5.4) 10^6/ul Hgb 14.1 (12.0-16.0) g/dl Hct 41 (35-47) % MCV 95 (80-97) fL MCH 33 H (27-31) pg MCHC 35 (31-36) g/dl RDW 14 (10.5-15) % Plt Count 204 (150-450) 10^3/ul MPV 8 (7.4-10.4) um3 Neut % (Auto) 62.8 (38-83) % Lymph % (Auto) 25.1 (25-47) % [place] % (Auto) 8.4 (1-9) % Eos % (Auto) 2.3 (0-6) % Baso % (Auto) 1.4 (0-2) % Absolute Neuts (auto) 3.1 (1.5-7.7) 10^3/ul Absolute Lymphs (auto) 1.3 (1.0-4.8) 10^3/ul Absolute Monos (auto) 0.4 (0-0.8) 10^3/ul Absolute Eos (auto) 0.1 (0-0.6) 10^3/ul Absolute Basos (auto) 0.1 (0-0.2) 10^3/ul Absolute Nucleated RBC 0 10^3/ul Nucleated RBC % 0.1 Sodium 136 (133-145) mmol/L Potassium 3.8 (3.5-5.0) mmol/L Chloride 101 (101-111) mmol/L Carbon Dioxide 29 (22-32) mmol/L Anion Gap 6 (2-11) mmol/L BUN 15 (6-24) mg/dL Creatinine 0.87 (0.51-0.95) mg/dL Est GFR ( Amer) 86.0 (>60) Est GFR (Non-Af Amer) 66.9 (>60) BUN/Creatinine Ratio 17.2 (8-20) Glucose 120 H (70-100) mg/dL Lactic Acid 1.2 (0.5-2.0) mmol/L Calcium 9.3 (8.6-10.3) mg/dL Total Bilirubin 0.40 (0.2-1.0) mg/dL AST 29 (13-39) U/L ALT 27 (7-52) U/L Alkaline Phosphatase 79 (34-104) U/L Troponin I 0.00 (<0.04) ng/mL Total Protein 6.9 (6.4-8.9) g/dL Albumin 4.4 (3.2-5.2) g/dL Globulin 2.5 (2-4) g/dL Albumin/Globulin Ratio 1.8 (1-3) Result Diagrams: 03/30/17 14:00 03/30/17 14:00 Lab Statement: Any lab studies that have been ordered have been reviewed, and results considered in the medical decision making process. - CT CTA Chest/Thorax CT Interpretation Completed By: Radiologist - 1.No evidence for pulmonary embolism. 2.No acute cardiopulmonary process evident. 3.Negative for lymphadenopathy. ED physician has reviewed this radiology report and agrees. - EKG 1425 Cardiac Rate: NL - 69bpm EKG Rhythm: Sinus Rhythm EKG Interpretation: Normal Spencer Complex Multi-Symp Course/Dx Course Of Treatment: Ms. Lenz presented C/O pleuritic CP and SOB for a couple days since going in the hyperbaric chamber. She was sent over to R/O PE and her CTA was negative as were labs. - Diagnoses Provider Diagnoses: Dyspnea Discharge - Discharge Plan Condition: Stable Disposition: HOME Patient Education Materials: Dyspnea (ED) Referrals: Alexandro THACKER,Madison Lo [Primary Care Provider] - 3 Days Additional Instructions: RETURN TO THE EMERGENCY DEPARTMENT FOR CHANGING OR WORSENING SYMPTOMS. The documentation as recorded by the Melonie ortega Nilda accurately reflects the service I personally performed and the decisions made by me, Juan Manuel Howard MD.
[2017-03-30 16:02] VITALS: BP 128/92
== END 2017-03-30 16:02 | disposition home or self-care (01) ==
LOC: ED 13:30
DX: R06.00 Dyspnea, unspecified (principal); R07.9 Chest pain, unspecified; Z87.891 Personal history of nicotine dependence; R60.9 Edema, unspecified
CPT/HCPCS: 36415; 71275; 80053; 83605; 84484; 85025; 93005; 99282; A9270-GY; Q9967

== ENCOUNTER 2017-09-09 13:39 | Emergency (ER) | payer BC ==
[2017-09-09] MEDS ORDERED: methylPREDNISolone 125 MG* 2 ML VIAL IV ONE (14:08)
[2017-09-09] MEDS ORDERED: Albuterol/Ipratropium NEB.SOL* Albuterol 2.5 MG/Ipratropium 0.5 MG 3 ML INH ONE ×2 (14:08→16:11)
[2017-09-09 14:41] LABS: ABS Basophils 0 10^3/ul (0-0.2); ABS Eosinophils 0 10^3/ul (0-0.6); ABS Lymphocytes 1.3 10^3/ul (1.0-4.8); ABS Monocytes 0.4 10^3/ul (0-0.8); ABS Neutrophils 3.7 10^3/ul (1.5-7.7); ABS Nucleated RBC 0 10^3/ul; Eosinophil % 0.2 % (0-6); Hematocrit 37 % (35-47); Hemoglobin 12.4 g/dl (12.0-16.0); Lymphocyte % 23.7 % (25-47); Mean Corpuscular HGB Conc 34 g/dl (31-36); Mean Corpuscular Hemoglobin 32 pg (27-31); Mean Corpuscular Volume 94 fL (80-97); Mean Platelet Volume 7.6 um3 (7.4-10.4); Nucleated Red Blood Cells % 0; Platelet Count 277 10^3/ul (150-450); Red Blood Count 3.92 10^6/ul (4.0-5.4); Red Cell Distribution Width 14 % (10.5-15); White Blood Count 5.4 10^3/ul (3.5-10.8)
[2017-09-09 15:00] LABS: EGFR Non-African American 64.9 (>60)
--- NOTE | 2017-09-09 15:13 | RAD ---
HISTORY: Difficulty breathing COMPARISONS: March 17, 2017 VIEWS: 4: Frontal dual-energy and lateral views of the chest. FINDINGS: CARDIOMEDIASTINAL SILHOUETTE: The aorta is tortuous. The cardiomediastinal silhouette is otherwise unremarkable. MALAIKA: The malaika are normal. PLEURA: The costophrenic angles are sharp. No pleural abnormalities are noted. LUNG PARENCHYMA: The lungs are clear. ABDOMEN: The upper abdomen is clear. There is no subphrenic gas. BONES AND SOFT TISSUES: Degenerative changes are noted along the spine. OTHER: None. IMPRESSION: NO ACTIVE CARDIOPULMONARY DISEASE.
[2017-09-09] MEDS ORDERED: Iohexol 350* (CONTRAST) 500 ML MDV IV ONE (15:28)
--- NOTE | 2017-09-09 16:04 | RAD ---
INDICATION: Chest pain. Short of breath. Evaluate for pulmonary embolus. Short of breath. Postoperative. COMPARISON: Chest x-ray same date; CTA chest March 30, 2017 TECHNIQUE: Axial source images were obtained from the thoracic inlet to the hemidiaphragms following administration of [address] angiographic technique was utilized. Coronal and sagittal reconstructed images were acquired. CHEST FINDINGS: Neck/thyroid: The visualized neck to include the thyroid appear normal. Chest wall: There are no acute abnormalities of the bony thorax or chest wall. There is no supraclavicular, infraclavicular, or axillary lymphadenopathy. Lungs : There are no pulmonary parenchymal masses or infiltrates. The pulmonary interstitium appears normal. There are no endobronchial lesions. Cardiomediastinal structures: There is no CT evidence of acute pulmonary embolic disease. The heart is normal in size. There is no pericardial effusion. There is no evidence of aortic aneurysm or dissection. There is no mediastinal or hilar adenopathy. The esophagus appears normal. Pleura : There are no pleural-based masses or effusions. Other: None. IMPRESSION: NO CT EVIDENCE OF ACUTE PULMONARY EMBOLIC DISEASE. LUNGS CLEAR.
[2017-09-09 17:02] VITALS: BP 126/68
--- NOTE | 2017-09-20 12:54 | ED ---
Berto Belcher Jason, scribed for Jesus Mendieta MD on 09/09/17 at 1558 . Shortness of Breath - HPI Summary HPI Summary: This patient is a 57 year old F BIBA to [facility] with a chief complaint of SOB since 4 days ago. The patient states she was sent from [facility] because during her follow up visit at the office she had a breathing treatment that worsened her breathing. She includes she was diagnosed with Viral Pneumonia by her PCP, and had right knee surgery 2 weeks ago. The patient rates the pain 0/10 in severity. Symptoms aggravated by nothing. Symptoms alleviated by nothing. Patient reports productive cough with sputum and SOB at rest. Patient denies chest pain. - History of Current Complaint Chief Complaint: EDShortnessOfBreath Time Seen by Provider: 09/09/17 13:54 Hx Obtained From: Patient Onset/Duration: Gradual Onset, Lasting Days - Since 4 days ago, Still Present Timing: Constant Dyspnea At: Rest Aggrevating Factors: Nothing Alleviating Factors: Nothing Associated Signs & Symptoms: Negative - chest pain, acute leg pain or swelling. , Cough (Productive) - with sputum, Chest Pain Unrelated to Cough - Allergy/Home Medications Allergies/Adverse Reactions: Allergies Allergy/AdvReac Type Severity Reaction Status Date / Time No Known Allergies Allergy Verified 03/30/17 13:43 PMH/Surg Hx/FS Hx/Imm Hx Previously Healthy: No Endocrine/Hematology History: Reports: Hx Thyroid Disease - enlarged with suspicious nodules Denies: Hx Diabetes, Hx Systemic Lupus Erythematosus Cardiovascular History: Reports: Other Cardiovascular Problems/Disorders - COPD diagnosed approx 2 yrs ago, hyperipidemia Denies: Hx Congestive Heart Failure, Hx Hypertension, Hx Pacemaker/ICD Respiratory History: Reports: Hx Chronic Obstructive Pulmonary Disease (COPD), Hx Pulmonary Embolism - 2007 possibly r/t the chemo, unsure Denies: Hx Asthma GI History: Reports: Hx Gastroesophageal Reflux Disease - in H&P, Hx Irritable Bowel - R/T TO RADIATION [place] IN 2007, Other GI Disorders - diarrhea Denies: Hx Ulcer History: Reports: Other Problems/Disorders - BLADDER DYSFUNCTION R/T CHEMO , Denies: Hx Dialysis, Hx Renal Disease Musculoskeletal History: Reports: Other Musculoskeletal History - MRI 2009 FINDINGS OF POSSIBLE ATHRITIS Denies: Hx Rheumatoid Arthritis Sensory History: Reports: Hx Contacts or Glasses - WEARS GLASSES Denies: Hx Hearing Aid Opthamlomology History: Reports: Hx Contacts or Glasses - WEARS GLASSES Neurological History: Reports: Other Neuro Impairments/Disorders - peripheral neuropathy r/t chemo therapy in 2007 Psychiatric History: Denies: Hx Panic Disorder - Cancer History Cancer Type, Location and Year: cervical with jeremiah stage 4 Hx Chemotherapy: Yes Hx Radiation Therapy: Yes - Surgical History Surgery Procedure, Year, and Place: tonsillectomy in the s;. tubaligation 1987;. D & C;. lymphecdectomy pelvis and abdomen in 2007 due to cervical cancer dx in 2007; Parathyroidectomy in 2010;. RIGHT KNEE ARTHROSCOPY Hx Anesthesia Reactions: No Infectious Disease History: No Infectious Disease History: Reports: Hx of Known/Suspected MRSA Denies: Hx Clostridium Difficile, Hx Hepatitis, Hx Human Immunodeficiency Virus (HIV), Hx Shingles, Hx Tuberculosis, Hx Known/Suspected VRE, Hx Known/ Suspected VRSA, History Other Infectious Disease, Traveled Outside the [place] in Last 30 Days - Family History Known Family History: Positive: Hypertension Negative: Diabetes, Blood Disorder - Social History Alcohol Use: Rare Alcohol Amount: 2-3 DRINKS A WEEK Substance Use Type: Reports: None Smoking Status (MU): Former Smoker Amount Used/How Often: QUIT FOR 2 YRS PRIOR TO THIS, SMOKED 1/2-3/4 PPD WHEN SHE DID SMOKE Review of Systems Negative: Chest Pain Positive: Shortness Of Breath, Cough - productive All Other Systems Reviewed And Are Negative: Yes Physical Exam - Summary Physical Exam Summary: Constitutional: Well-developed, Well-nourished, Alert. (-) Distressed Skin: Warm, Dry HENT: Normocephalic; Atraumatic Eyes: Conjunctiva normal Neck: Musculoskeletal ROM normal neck. (-) JVD, (-) Stridor, (-) Tracheal deviation Cardio: Rhythm regular, rate normal, Heart sounds normal; Intact distal pulses; The pedal pulses are 2+ and symmetric. Radial pulses are 2+ and symmetric. (-) Murmur Pulmonary/Chest wall: Effort normal. (-) Respiratory distress, (-) Wheezes, (-) Rales Abd: Soft, (-) Tenderness, (-) Distension, (-) Guarding, (-) Rebound Musculoskeletal: (-) Edema. No acute leg pain or swelling. Her incision is clean , dry and intact on the right side. Lymph: (-) Cervical adenopathy Neuro: Alert, Oriented x3 Psych: Mood and affect Normal Triage Information Reviewed: Yes Vital Signs On Initial Exam: Initial Vitals Temp Pulse Resp BP Pulse Ox 97.6 F 70 21 0/0 100 09/09/17 14:07 09/09/17 14:07 09/09/17 14:07 09/09/17 14:07 09/09/17 14:07 Vital Signs Reviewed: Yes Diagnostics - Vital Signs Vital Signs Temp Pulse Resp BP Pulse Ox 09/09/17 14:21 75 16 98 09/09/17 14:13 74 16 96 09/09/17 14:10 100 09/09/17 14:07 97.6 F 70 21 0/0 100 - Laboratory Lab Results: Lab Results 09/09/17 09/09/17 09/09/17 Range/Units 14:15 14:15 14:15 WBC 5.4 (3.5-10.8) 10^3/ul RBC 3.92 L (4.0-5.4) 10^6/ul Hgb 12.4 (12.0-16.0) g/dl Hct 37 (35-47) % MCV 94 (80-97) fL MCH 32 H (27-31) pg MCHC 34 (31-36) g/dl RDW 14 (10.5-15) % Plt Count 277 (150-450) 10^3/ul MPV 7.6 (7.4-10.4) um3 Neut % (Auto) 67.4 (38-83) % Lymph % (Auto) 23.7 L (25-47) % [place] % (Auto) 8.2 H (0-7) % Eos % (Auto) 0.2 (0-6) % Baso % (Auto) 0.5 (0-2) % Absolute Neuts (auto) 3.7 (1.5-7.7) 10^3/ul Absolute Lymphs (auto) 1.3 (1.0-4.8) 10^3/ul Absolute Monos (auto) 0.4 (0-0.8) 10^3/ul Absolute Eos (auto) 0 (0-0.6) 10^3/ul Absolute Basos (auto) 0 (0-0.2) 10^3/ul Absolute Nucleated RBC 0 10^3/ul Nucleated RBC % 0 Sodium 140 (139-145) mmol/L Potassium 4.4 (3.5-5.0) mmol/L Chloride 104 (101-111) mmol/L Carbon Dioxide 25 (22-32) mmol/L Anion Gap 11 (2-11) mmol/L BUN 17 (6-24) mg/dL Creatinine 0.89 (0.51-0.95) mg/dL Est GFR ( Amer) 83.5 (>60) Est GFR (Non-Af Amer) 64.9 (>60) BUN/Creatinine Ratio 19.1 (8-20) Glucose 88 (70-100) mg/dL Lactic Acid 1.7 (0.5-2.0) mmol/L Calcium 9.8 (8.6-10.3) mg/dL Total Bilirubin 0.40 (0.2-1.0) mg/dL AST 78 H (13-39) U/L ALT 59 H (7-52) U/L Alkaline Phosphatase 84 (34-104) U/L Troponin I 0.01 (<0.04) ng/mL Total Protein 7.5 (6.4-8.9) g/dL Albumin 4.4 (3.2-5.2) g/dL Globulin 3.1 (2-4) g/dL Albumin/Globulin Ratio 1.4 (1-3) Result Diagrams: 09/09/17 14:15 09/09/17 14:15 Lab Statement: Any lab studies that have been ordered have been reviewed, and results considered in the medical decision making process. - Radiology CXR Radiology Interpretation Completed By: Radiologist - CXR reveals, per radiologist, NO ACTIVE CARDIOPULMONARY DISEASE. ED physician has reviewed this radiology report. - CT chest/thorax CTA CT Interpretation Completed By: Radiologist - Chest/thorax CTA reveals, per radiologist, NO CT EVIDENCE OF ACUTE PULMONARY EMBOLIC DISEASE. LUNGS CLEAR. ED physician has reviewed this radiology report. - EKG 1415 Cardiac Rate: NL EKG Rhythm: Sinus Rhythm - [address] Segment: Normal EKG Interpretation: T waves flat V4-V6 Re-Evaluation - Re-Evaluation First Eval Re-Evaluation Time: 16:15 Change: Improved Comment: The patient's symptoms resolved after use of nebulizer. Ambulatory oximetry is 94%. Course/Dx - Course Assessment/Plan: CT and labs are negative. Patient will be discharged and follow up with PCP in 2-3 days. Patient is agreeable with this plan. - Diagnoses Provider Diagnoses: Bronchitis Discharge - Sign-Out/Discharge Documenting (check all that apply): Discharge - Discharge Plan Condition: Stable Disposition: HOME Prescriptions: Albuterol HFA INHALER* [Ventolin HFA Inhaler*] 2 puff INH Q4H PRN #1 mdi PRN Reason: Cough DOXYcycline CAP(*) [DOXYcycline 100MG CAP(*)] 100 mg PO BID #14 cap predniSONE TAB* [Deltasone TAB*] 50 mg PO DAILY #5 tab Patient Education Materials: Acute Bronchitis (ED) Referrals: Alexandro THACKER,Madison Lo [Primary Care Provider] - 3 Days Additional Instructions: RETURN TO THE EMERGENCY DEPARTMENT FOR CHANGING OR WORSENING SYMPTOMS The documentation as recorded by the Berto ortega Jason accurately reflects the service I personally performed and the decisions made by , Jesus Mendieta MD.
== END 2017-09-09 17:01 | disposition home or self-care (01) ==
LOC: ED 13:39
DX: J40 Bronchitis, not specified as acute or chronic (principal); R06.02 Shortness of breath; Z87.891 Personal history of nicotine dependence; R05 Cough
CPT/HCPCS: 36415; 71046; 71275; 80053; 83605; 84484; 85025; 93005; 94640; 96374; 99282; A9270-GY; J2930; Q9967

== ENCOUNTER 2019-09-23 08:00 | Emergency (ER) | payer BC, OTHER ==
--- NOTE | 2019-09-23 08:15 | ED ---
Dizziness - HPI Summary HPI Summary: 59 [facility] episodes of dizziness, nausea, headache starting Wednesday 09/20 AM. Patient woke up Wednesday 09/20 0400, got out of bed, felt dizzy, fell down. Patient got back in bed, still felt dizzy, kept having dizziness with nausea and headache. Patient fell back asleep but would wake up from dizziness if she rolled over. Her dizziness eventually resolved then nausea and headache resolved. She had one minor episode of same yesterday . Patient woke up today AM with same. No visual changes, ringing in ears, weakness in BLE or BUE, speech changes, change in mental status. She has not taken any medications for her symptoms. No recent colds or illnesses. Symptoms aggravated and alleviated by nothing. Has never been seen by ENT. Medications reviewed. Allergies noted. Hx inner ear damage secondary to taking chemotherapy and radiation. Hx cervical cancer with metathesis to lymph nodes. Hx COPD. Surgical hx: tonsillectomy, tubal ligation, total R knee replacement, parathyroidectomy. Drinks ETOH socially. Current smoker. No recreational drug use. - History Of Current Complaint Chief Complaint: EDDizziness Stated Complaint: VERTIGO PER PT Time Seen by Provider: 09/23/19 08:04 Hx Obtained From: Patient Onset/Duration: Still Present Timing: Intermittent Episode Lasting Aggravating Factor(s): Nothing Alleviating Factor(s): Nothing Associated Signs And Symptoms: Positive: Negative - visual changes, ringing in ears, weakness in BLE or BUE, speech changes, change in mental status, Nausea, Other: - headache - Allergies/Home Medications Allergies/Adverse Reactions: Allergies Allergy/AdvReac Type Severity Reaction Status Date / Time No Known Allergies Allergy Verified 09/23/19 08:04 Home Medications: Home Medications Meclizine TAB* [Antivert 12.5 TAB*] 25 mg PO TID PRN #20 tab 09/23/19 [Rx] Ondansetron ODT TAB* [Zofran 4 MG Odt TAB*] 4 mg PO Q8H PRN #12 tab.odt [Rx] Umeclidin/Vilant 62.5 MDI(NF) [ANORO 62.5/25 Ellipta DEVICE (NF)] 1 puff INH DAILY 09/23/19 [History Confirmed 09/23/19] PMH/Surg Hx/FS Hx/Imm Hx Endocrine/Hematology History: Reports: Hx Thyroid Disease - enlarged with suspicious nodules Denies: Hx Diabetes, Hx Systemic Lupus Erythematosus Cardiovascular History: Reports: Hx Hypertension, Other Cardiovascular Problems/ Disorders - COPD diagnosed approx 2 yrs ago, hyperipidemia Respiratory History: Reports: Hx Chronic Obstructive Pulmonary Disease (COPD), Hx Pulmonary Embolism - 2007 possibly r/t the chemo, unsure Denies: Hx Asthma GI History: Reports: Hx Gastroesophageal Reflux Disease - in H&P, Hx Irritable Bowel - R/T TO RADIATION [place] IN 2007, Other GI Disorders - diarrhea History: Reports: Other Problems/Disorders - BLADDER DYSFUNCTION R/T CHEMO , Musculoskeletal History: Reports: Other Musculoskeletal History - MRI 2008 FINDINGS OF POSSIBLE ATHRITIS Sensory History: Reports: Hx Contacts or Glasses - WEARS GLASSES Opthamlomology History: Reports: Hx Contacts or Glasses - WEARS GLASSES Neurological History: Reports: Other Neuro Impairments/Disorders - peripheral neuropathy r/t chemo therapy in 2007 - Cancer History Cancer Type, Location and Year: cervical with mets to lymph nodes stage 4 Hx Chemotherapy: No Hx Radiation Therapy: No - Surgical History Surgery Procedure, Year, and Place: tonsillectomy in the ;. tubaligation 1987;. D & C;. lymphecdectomy pelvis and abdomen in 2007 due to cervical cancer dx in 2007; Parathyroidectomy in 2010;. RIGHT KNEE ARTHROSCOPY Hx Anesthesia Reactions: No Infectious Disease History: No Infectious Disease History: Reports: Hx of Known/Suspected MRSA Denies: Hx Clostridium Difficile, Hx Hepatitis, Hx Human Immunodeficiency Virus (HIV), Hx Shingles, Hx Tuberculosis, Hx Known/Suspected VRE, Hx Known/ Suspected VRSA, History Other Infectious Disease, Traveled Outside the [place] in Last 30 Days - Family History Known Family History: Positive: Hypertension Negative: Diabetes - Social History Alcohol Use: Occasionally Alcohol Amount: 2-3 DRINKS A WEEK Substance Use Type: Reports: None Hx Tobacco Use: Yes Smoking Status (MU): Current Some Day Smoker Review of Systems Eyes: Negative - visual changes ENT: Negative - ringing in ears Positive: Nausea Neurological/Mental Status: Negative - speech changes, change in mental status, Other - Dizziness Positive: Headache. Negative: Weakness - BLE or BUE All Other Systems Reviewed And Are Negative: Yes Physical Exam - Summary Physical Exam Summary: Constitutional: Well-developed, Well-nourished, Alert. (-) Distressed Skin: Warm, Dry HENT: Normocephalic; Atraumatic Eyes: Conjunctiva normal Neck: Musculoskeletal ROM normal neck. (-) JVD, (-) Stridor, (-) Tracheal deviation Cardio: Rhythm regular, rate normal, Heart sounds normal; Intact distal pulses; Radial pulses are 2+ and symmetric. (-) Murmur Pulmonary/Chest wall: Effort normal. (-) Respiratory distress, (-) Wheezes, (-) Rales Abd: Soft, (-) tenderness, (-) Distension, (-) Guarding, (-) Rebound Musculoskeletal: (-) Edema Lymph: (-) Cervical adenopathy Neuro: Alert, Oriented x3; Nystagmus on lateral leftward gaze that is fatigable ; She walks with an unsteady gait; NIH 0 Psych: Mood and affect Normal Triage Information Reviewed: Yes Vital Signs On Initial Exam: Initial Vitals Temp Pulse Resp BP Pulse Ox 98 F 77 16 159/108 96 09/23/19 08:00 09/23/19 08:00 09/23/19 08:00 09/23/19 08:00 09/23/19 08:00 Vital Signs Reviewed: Yes Procedures - Sedation Patient Received Moderate/Deep Sedation with Procedure: No Diagnostics - Vital Signs Vital Signs Temp Pulse Resp BP Pulse Ox 09/23/19 08:00 98 F 77 16 159/108 96 - Laboratory Result Diagrams: 09/23/19 08:26 09/23/19 08:26 Lab Statement: Any lab studies that have been ordered have been reviewed, and results considered in the medical decision making process. - EKG 0826 Cardiac Rate: NL - 72 BPM EKG Rhythm: Sinus Rhythm Summary of EKG Findings: NSR 72 BPM. No events of ischemia. ED physician has reviewed and interpreted this EKG. National Institutes Of Health - NIH Scale Level of Consciousness: Alert/Keenly Responsive Ask Patient the Month and His/Her Age: Both Correct Ask Pt to Open/Close Eyes and Alley Cleaner/Release Non-Paretic Hand: Both Correctly Best Gaze (Only Horizontal Eye Movement): Normal Visual Field Testing: No Visual Loss Facial Paresis-Pt to Smile & Close Eyes or Grimace Symmetry: Normal/Symmetrical Motor Function - Right Arm: No Drift-Holds 10 Seconds Motor Function - Left Arm: No Drift-Holds 10 Seconds Motor Function - Right Leg: No Drift-Holds 10 Seconds Motor Function - Left Leg: No Drift-Holds 10 Seconds Limb Ataxia-Must be out of Proportion to Weakness Present: Absent Sensory (Use Pinprick to Test Arms/Legs/Trunk/Face): Normal Best Language (Describe Picture, Name Items): No Aphasia Dysarthria (Read Several Words): Normal Extinction and Inattention: No Abnormality Total Score: 0 Re-Evaluation - Re-Evaluation First Eval Re-Evaluation Time: 09:33 Change: Improved - Patient is feeling better. Still a little dizzy. She was offered Ativan but declined. She wants to go home. She's been feeling like there is fluid in her right ear for the past 1.5 weeks. She deals with tinnitus chronically. Dizzy Course/Dx - Course Course Of Treatment: Patient's ear symptoms consistent with peripheral vertigo. Patient has no neurologic deficits. Patient has been suffering from inner ear issues chronically and has felt fluid in her right ear for the past 1.5 weeks. Patient had bloodwork performed grossly unremarkable. Patient was given meclizine and Zofran with last improvement in her symptoms. Patient was offered Ativan for further control but declined. Patient was discharged with a prescription for meclizine. - Diagnoses Provider Diagnoses: Peripheral vertigo, Nausea Discharge ED - Sign-Out/Discharge Documenting (check all that apply): Patient Departure - Discharge Plan Condition: Stable Disposition: HOME Prescriptions: Meclizine TAB* [Antivert 12.5 TAB*] 25 mg PO TID PRN #20 tab PRN Reason: Vertigo Ondansetron ODT TAB* [Zofran 4 MG Odt TAB*] 4 mg PO Q8H PRN #12 tab.odt PRN Reason: Nausea Patient Education Materials: Vertigo (ED) Referrals: Jon Nguyen MD [Medical Doctor] - 09/24/19 Additional Instructions: Please call Dr. Nguyen's office tomorrow 09/24/2019 to set up an appointment. Please return to the Emergency Department for any new or worsening symptoms such as one sided weakness, slurred speech, change in vision. - Billing Disposition and Condition Condition: STABLE Disposition: Home - Attestation Statements Document Initiated by Scribe: Yes Documenting Scribe: Lori Castro Provider For Whom Scribe is Documenting (Include Credential): Sanchez Portillo MD Scribe Attestation: I, Lori Castro, scribed for Sanchez Portillo MD on 09/23/19 at 1609. Scribe Documentation Reviewed: Yes Provider Attestation: The documentation as recorded by the howardibe, Lori Castro accurately reflects the service I personally performed and the decisions made by me, Sanchez Portillo MD Status of Scribe Document: Viewed
[2019-09-23] MEDS ORDERED: Ondansetron ODT TAB* 4 MG PO ONE (08:16)
[2019-09-23] MEDS ORDERED: Meclizine TAB* 12.5 MG PO ONE (08:16)
[2019-09-23 08:35] LABS: ABS Eosinophils 0.1 10^3/ul (0-0.6); ABS Lymphocytes 1.2 10^3/ul (1.0-4.8); ABS Monocytes 0.4 10^3/ul (0-0.8); ABS Neutrophils 4.1 10^3/ul (1.5-7.7); Eosinophil % 1.1 %; Hematocrit 48 % (35-47); Hemoglobin 16.6 g/dL (12.0-16.0); Mean Corpuscular HGB Conc 35 g/dL (31-36); Mean Corpuscular Hemoglobin 34 pg (27-31); Mean Corpuscular Volume 97 fL (80-97); Mean Platelet Volume 7.3 fL (7.4-10.4); Nucleated Red Blood Cells % 0.1; Platelet Count 225 10^3/uL (150-450); Red Blood Count 4.94 10^6 /uL (3.70-4.87); Red Cell Distribution Width 14 % (10-15); White Blood Count 5.8 10^3/uL (3.5-10.8)
[2019-09-23 08:51] LABS: Albumin 4.4 g/dL (3.2-5.2); Albumin/Globulin Ratio 1.8 (1-3); BUN/Creatinine Ratio 21.8 (8-20); Calcium 9.4 mg/dL (8.6-10.3); EGFR African American 80.1 (>60); EGFR Non-African American 66.2 (>60); Globulin 2.5 g/dL (2-4); Potassium 4.1 mmol/L (3.5-5.0); Total Bilirubin 0.6 mg/dL (0.2-1.0); Total Protein 6.9 g/dL (6.4-8.9)
[2019-09-23 09:48] VITALS: BP 133/91
== END 2019-09-23 09:38 | disposition home or self-care (01) ==
LOC: ED 08:00
DX: R42 Dizziness and giddiness (principal); R11.0 Nausea; R51 Headache; E03.9 Hypothyroidism, unspecified; I10 Essential (primary) hypertension; J44.9 Chronic obstructive pulmonary disease, unspecified; K21.9 Gastro-esophageal reflux disease without esophagitis; Z86.14 Personal history of Methicillin resistant Staphylococcus aureus infection; Z72.0 Tobacco use
CPT/HCPCS: 36415; 80053; 84484; 85025; 93005; 99282; A9270-GY